=== PATIENT | male | born 1970 | race Caucasian/White ===

== ENCOUNTER 2016-10-11 08:30 | Emergency (ER) | payer BC ==
[2016-10-11 09:14] VITALS: BP 126/85
--- NOTE | 2016-10-11 09:24 | UC ---
Eye Complaint HPI - HPI Summary HPI Summary: The patient comes in today for: 1. Red eyes, and discharge--both eyes: Onset: 3 days ago. Palliative/provocative: Nothing makes symptoms better or worse. Quality: No pain, just itching. Region: Both eyes. Severity: 09/05 Time: Constant. Associated symptoms: Discharge: green. They will be crusted shut in AM. Previous eye disease: None. He is not wearing contacts. * - History of Current Complaint Chief Complaint: UCEye Stated Complaint: BILATERAL EYE COMPLAINT Time Seen by Provider: 10/11/16 09:16 Hx Obtained From: Patient - Allergies/Home Medications Allergies/Adverse Reactions: Allergies Allergy/AdvReac Type Severity Reaction Status Date / Time No Known Allergies Allergy Verified 10/11/16 09:10 Home Medications: Home Medications NK [No Home Medications Reported] 10/11/16 [History Confirmed 10/11/16] PMH/Surg Hx/FS Hx/Imm Hx Previously Healthy: Yes Endocrine History Of: Denies: Diabetes, Thyroid Disease, Hyperthyroidism, Hypothyroidism, Dyslipidemia Cardiovascular History Of: Denies: Cardiac Disorders, Hypertension, Pacemaker/ICD, Myocardial Infarction , Congestive Heart Failure, Atrial Fibrillation, Deep Vein Thrombosis, Bleeding Disorders Respiratory History Of: Denies: COPD, Asthma, Bronchitis, Pneumonia, Pulmonary Embolism GI/ History Of: Denies: Gastroesophageal Reflux, Ulcer, Gastrointestinal Bleed, Gall Bladder Disease, Kidney Stones, Diverticulitis, Renal Disease, Urosepsis Neurological History Of: Denies: TIA, CVA, Dementia, Seizures, Migraine Psychological History Of: Denies: Anxiety, Depression, Bipolar Disorder, Schizophrenia, Post Traumatic Stress Disorder Cancer History Of: Denies: Lung Cancer, Colorectal Cancer, Breast Cancer, Prostate Cancer, Cervical Cancer Other History Of: Negative For: HIV, Hepatitis B, Hepatitis C, Anticoagulant Therapy - Surgical History Surgical History: Yes Surgery Procedure, Year, and Place: Dental - Family History Known Family History: Positive: Cardiac Disease, Diabetes, Renal Disease Negative: Hypertension - Social History Occupation: Employed Full-time Alcohol Use: Weekly Substance Use Type: None Smoking Status (MU): Heavy Every Day Tobacco Smoker Type: Cigarettes Amount Used/How Often: 1/2 PPD Have You Smoked in the Last Year: Yes When Did the Patient Quit Smoking/Using Tobacco: JUL 2014 - Immunization History Most Recent Influenza Vaccination: Not the Season Review of Systems Constitutional: Negative Skin: Negative Eyes: Drainage ENT: Negative Respiratory: Negative Cardiovascular: Negative Gastrointestinal: Negative Genitourinary: Negative All Other Systems Reviewed And Are Negative: Yes Physical Exam Triage Information Reviewed: Yes Appearance: Well-Appearing, No Pain Distress, Well-Nourished Vital Signs: Initial Vital Signs Temp 97.9 F 10/11/16 09:08 Pulse 68 10/11/16 09:08 Resp 16 10/11/16 09:08 BP 126/85 10/11/16 09:08 Pulse Ox 98 10/11/16 09:08 Vital Signs Reviewed: Yes Eyes: Negative: Conjunctiva Clear - There is erythema of the conjunctiva bilaterally of the corners of each eye. There is a greenish discharge present. There is limbal clearing. ENT: Positive: Hearing grossly normal. Negative: Pharynx normal, Pharyngeal erythema, Nasal congestion, Nasal drainage, TM bulging, TM dull, TM red, Tonsillar swelling, Tonsillar exudate Dental: Negative: Gross Decay/Caries @, Dental Fracture @ Neck: Positive: Supple, Nontender, No Lymphadenopathy. Negative: Nuchal Rigidity Respiratory: Positive: Lungs clear, No respiratory distress, No accessory muscle use. Negative: Crackles, Wheezing Cardiovascular: Positive: RRR, No Murmur Abdomen Description: Positive: Nontender, No Organomegaly, Soft. Negative: Distended, Guarding Musculoskeletal: Positive: Strength Intact, ROM Intact, No Edema Neurological: Positive: Alert Psychological: Positive: Age Appropriate Behavior, Consolable Skin: Negative: rashes, breakdown Eye Complaint Course/Dx - Differential Dx/Diagnosis Differential Diagnosis/HQI/PQRI: Keratitis, Uveitis Provider Diagnoses: Bilateral bacterial conjunctivitis Discharge - Discharge Plan Condition: Stable Disposition: HOME Patient Education Materials: Conjunctivitis (ED) Referrals: No Primary Care Phys,NOPCP [Primary Care Provider] - 1 Week (Please see your primary care provider in about a week. If you don't have a primary care provider, please reference the included sheet of local provider. If you get worse, please be seen sooner.)
== END 2016-10-11 09:37 | disposition home or self-care (01) ==
LOC: UCCORT 08:30
DX: H10.89 Other conjunctivitis (principal); A48.8 Other specified bacterial diseases; F17.210 Nicotine dependence, cigarettes, uncomplicated
CPT/HCPCS: 99212; G0463

== ENCOUNTER 2017-08-13 08:02 | Emergency (ER) | payer SELFPAY ==
[2017-08-13 08:13] VITALS: BP 152/85
--- NOTE | 2017-08-13 08:13 | UC ---
Back Pain HPI - HPI Summary HPI Summary: 47 y/o male presents to the urgent care c/o acute back pain s/p slipping on the parking lot at work this morning around 0615am. Pt reports he slipped with the ice and he twisted his back, but didn't fall. Pain is sharp, 8/10 with movement and it radiates to both hisp with certain movement and mild numbness and tingling sensation over the RT hip. 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 Pt denies urinary symptoms, urinary and fecal incontinence, saddle paresthesias, SOB, chest pain , abdominal pain or N/V /D. He has not taking anything to alleviate pain. " - History of Current Complaint Stated Complaint: WC-LOWER BACK PAIN Time Seen by Provider: 08/13/17 08:08 Hx Obtained From: Patient Onset/Duration: Sudden Onset, Lasting Hours - 2 hrs, Still Present, Worse Since Timing: Constant Severity Initially: Moderate Severity Currently: Moderate Pain Intensity: 8 Pain Scale Used: 0-10 Numeric Back Pain: Is Discrete @ - lower back radiating to both hips Character: Sharp Aggravating Factor(s): Movement, Lifting, Bending, Walking Alleviating Factor(s): Rest Associated Signs And Symptoms: Positive: Numbness, Tingling - RT hip, Pain with Weight Bearing. Negative: Swelling, Redness, Abdominal Pain, Flank Pain, Bladder Incontinence, Bowel Incontinence, Weight Loss - Risk Factors AAA Risk Factors: Negative TAD Risk Factors: Negative Cauda Equina Risk Factors: Negative Epidural Abscess Risk Factors: Negative - Allergies/Home Medications Allergies/Adverse Reactions: Allergies Allergy/AdvReac Type Severity Reaction Status Date / Time No Known Allergies Allergy Verified 08/13/17 08:07 Home Medications: Home Medications Back And Body 2 tab PO ONCE 08/13/17 [History] PMH/Surg Hx/FS Hx/Imm Hx Previously Healthy: Yes - Pt denies PMHX Other History Of: Negative For: HIV, Hepatitis B, Hepatitis C, Anticoagulant Therapy - Surgical History Surgical History: Yes Surgery Procedure, Year, and Place: Dental - Family History Known Family History: Positive: Cardiac Disease, Diabetes, Renal Disease Negative: Hypertension - Social History Occupation: Employed Full-time Lives: With Family Alcohol Use: Weekly Substance Use Type: None Smoking Status (MU): Heavy Every Day Tobacco Smoker Type: Cigarettes Amount Used/How Often: 1/2 PPD Have You Smoked in the Last Year: Yes When Did the Patient Quit Smoking/Using Tobacco: JUL 2014 - Immunization History Most Recent Influenza Vaccination: Not the 2015/2016 Season Review of Systems Constitutional: Negative Skin: Negative Eyes: Negative ENT: Negative Respiratory: Negative Cardiovascular: Negative Gastrointestinal: Negative Genitourinary: Negative Motor: Decreased ROM - lower back Musculoskeletal: Decreased ROM, Other: - acute lower back pain s/p injury this morning Neurological: Negative, Headache Is Patient Immunocompromised?: No All Other Systems Reviewed And Are Negative: Yes Physical Exam Triage Information Reviewed: Yes - Additional Comments General: Patient is a well developed male without any distress that is laying comfortably in the stretcher. Skin: [place], warm, dry HEAD AND FACE: No signs of trauma. EYES: PERRLA, EOMI x 2. EARS: Hearing grossly intact. MOUTH: Oropharynx within normal limits. NECK: Supple, trachea is midline, no adenopathy, no JVD. CHEST: Symmetric, no tenderness at palpation LUNGS: CTA bilaterally, no rales, rhonchi or wheezing CVS: RRR, no murmur, rub, or gallop ABDOMEN: soft and Nontender without masses, no guarding or rebound. Bowel sounds are active. No Hepato-splenomegaly. No signs of inguinal hernias. BACK: Patient walked into the urgent care room with symmetric ambulation, but slowly due to pain, No signs of limping, antalgic, able to bear weight. No signs of trauma, positive point tenderness over spine at L4,5, S1 and B/L paraspinal muscle tenderness at the same level No masses palpated. No CVAT, no flank ecchymosis . No sacroiliac notch tenderness, No saddle anesthesia. Decrease ROM limited due to pain, specially laying down and upon standing. Straight Leg Raise: unable to performe due to pain. Patellar reflexes: brisk, symmetric Muscle strength lower extremities. Dorsiflexion/ plantar flexion of ankles. Lower extremities: Femoral, popliteal, posterior tibial, and dorsalis pedis pulses with in normal, Rectal: Patient refused the exam. Neurological: WNL Psychological: WNL Skin: dry and warm Back Pain Course/Dx - Course Course Of Treatment: 47 y/o male presents to the urgent care c/o acute back pain s/p slipping on the parking lot at work this morning around 0615am. Pt reports he slipped with the ice and he twisted his back, but didn't fall. Pain is sharp, 8/10 with movement and it radiates to both hisp with certain movement and mild numbness and tingling sensation over the RT hip. 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 Pt denies urinary symptoms, urinary and fecal incontinence, saddle paresthesias, SOB, chest pain , abdominal pain or N/V/D. He has not taking anything to alleviate pain.Hx obtained. PE: Point tenderness at the level of the L3,4,5-S1 and left paraspinal muscle spasm at the same level on examination. Lumbosacral X-ray ordered, Impression: Mild degenarative disc diseas at the thoracolumbar junction with minimal osteophyte formation observed. Toradol IM inj ordered at the clinic. Given by nurse. Pt tolerated well IM inj and pain decrease. Pt Rx Naproxen PO, flexeril PO and given a PT referral. Patient was instructed to the f/u wit orthopedic in 1 week if symptoms do not improve or worsen. Patient understands and agrees. Patient is able to ambulate freely w/o aid or limp. Plan of care was discussed with the patient and patient understands and agrees. Pt's BP is elevated today advised to decrease salt in his diet, monitor BP and f /u with PCP for further evaluation. All questions were answered at patient satisfaction. Work for filled out. Pt left clinic hemodynamically stable. - Differential Dx/Diagnosis Differential Diagnosis/HQI/PQRI: Cauda Equina Syndrome, Fracture, Herniated Disc , Strain, Sprain Provider Diagnoses: 1- Acute lower back pain s/p injury at work. 2- Degenerative Disc Disease. 3- Elevated BP w/o Hx of HTN Discharge - Discharge Plan Condition: Stable Disposition: HOME Prescriptions: Cyclobenzaprine TAB* [Flexeril 10 MG TAB*] 10 mg PO TID PRN #15 tab PRN Reason: Spasms - Back Naproxen [Naproxen 500 mg] 500 mg PO Q8H PRN #30 tab PRN Reason: Pain Patient Education Materials: Low Back Strain (ED), Acute Low Back Pain (ED), Low Sodium Diet (ED), Degenerative Disc Disease (ED) Forms: *Work Release Referrals: [facility] [Outside] Hernan Malik MD [Medical Doctor] - 1 Week Additional Instructions: 1- Please take Naproxen PO as directed after meals for pain. 2- Take Flexeril PO as directed for muscle spasm. Please do not drive while taking the medication it can make you drowsy 3- Wear a back support. Avoid strenuous exercise of heavy lifting. 4- Please follow up with Orthopedic Dr or your PCP in 1 week if not improvement of symptoms, for further management. 5-Your BP is elevated today. please decrease salt in your diet, monitor BP and if it continues to be elevated please f/u with your PCP for further management
[2017-08-13] MEDS ORDERED: Ketorolac INJ* 60 MG/2 ML VIAL IM ONE (08:24)
--- NOTE | 2017-08-13 08:52 | RAD ---
HISTORY: Acute low back pain, injury COMPARISONS: May 14, 2013 VIEWS: 5 , Frontal, lateral, coned-down lateral sacral, and bilateral oblique views of the lumbar spine. FINDINGS: ALIGNMENT: The alignment is normal. VERTEBRAL BODIES: Again noted is mild anterior wedging at the thoracolumbar junction with minimal anterolateral marginal osteophyte formation, stable.. The interpedicular distances are normal. JOINTS: The facet joints are normal. INTERVERTEBRAL DISCS: There is mild diffuse loss of intervertebral disc height. SOFT TISSUE: Unremarkable. OTHER: The pelvis is unremarkable. The lung bases are clear. IMPRESSION: MILD DEGENERATIVE DISC DISEASE.
== END 2017-08-13 09:20 | disposition home or self-care (01) ==
LOC: UCCORT 08:02
DX: M54.5 Low back pain (principal); R03.0 Elevated blood-pressure reading, without diagnosis of hypertension; M51.35 Other intervertebral disc degeneration, thoracolumbar region; W00.0XXA Fall on same level due to ice and snow, initial encounter; Y92.9 Unspecified place or not applicable
CPT/HCPCS: 72110; 96372; 99212; G0463; J1885